=== PATIENT | female | born 1960 | race Caucasian/White ===

== ENCOUNTER 2020-08-05 10:08 | Emergency (ER) | payer OTHER, BC, SELFPAY ==
[2020-08-05 10:24] VITALS: BP 162/71; PULSE 62; RESP 12; TEMP 36.4; O2SAT 99
--- NOTE | 2020-08-05 10:46 | ED.BACK ---
HPI - Back Pain/Injury General Chief Complaint: Back Pain/Injury Stated Complaint: back pain Time Seen by Provider: 08/05/20 10:28 Source: patient and RN notes reviewed Mode of arrival: ambulatory Limitations: no limitations History of Present Illness HPI Narrative: Patient presents today complaining of a 6-day history of low back pain. Reports that it radiates to the bilateral hips and down to the left knee. Denies numbness or tingling in the extremities or genitalia. Denies any loss of bowel or bladder control. 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 States her pain began after she had been rolling multiple very heavy or obese patients last week. She currently rates her pain 5/10 and has been taking naproxen and Skelaxin with mild relief. She has also been using a heating pad. MD elicited complaint: back pain and back injury Related Data Home Medications Medication Instructions Recorded Confirmed Naprosyn 08/05/20 Skelaxin 08/05/20 losartan 08/05/20 thyroid 08/05/20 Allergies Allergy/AdvReac Type Severity Reaction Status Date / Time sumatriptan [From Imitrex] Allergy Unknown Verified 08/05/20 10:30 lisinopril AdvReac Cough Verified 08/05/20 10:30 Review of Systems Review of Systems: Narrative: CONSTITUTIONAL: Denies body aches, fever, chills, or sweats. EYES: Denies visual changes, redness, or discharge. ENT: Denies rhinorrhea, congestion, sore throat, or otalgia. CARDIOVASCULAR: Denies chest pain, palpitations, or edema. RESPIRATORY: Denies cough or dyspnea. GASTROINTESTINAL: Denies abdominal pain, nausea, vomiting, or diarrhea. GENITOURINARY: Denies dysuria or hematuria. SKIN: Denies rash, itching, or wounds. MUSCULOSKELETAL: Denies joint pain, or myalgia. + Low back pain NEUROLOGIC: Denies headache, numbness, tingling, or weakness. PSYCH: Denies depression or anxiety. [facility] Past Medical History Medical History (Updated 08/05/20 @ 11:44 by Claudia Rodriguez, [employer], ) Fibromyalgia Hypertension Hypothyroidism Comments At time of signature, I have reviewed and agree with nursing past medical, surgical, social and family history unless otherwise noted. Please see nursing chart for further information. There is no relevant family history pertinent to the presenting complaint Exam Narrative: Exam Narrative: GENERAL: Well-appearing, well-nourished, and in no acute distress. HEAD: Normocephalic, atraumatic. EYES: EOMI. No redness or drainage. Conjunctivae normal. ENT: Mucous membranes pink and moist. NECK: Normal AROM. CHEST: No respiratory distress. MUSCULOSKELETAL: Midline tenderness of the lower lumbar spine. Bilateral lower lumbar paraspinal muscle tenderness that extends to the bilateral buttocks. Distal sensation intact bilaterally. Saddle sensation intact. Capillary refill normal. Posterior tibial pulses normal. Foot push and pulls equal and strong. Hip flexion equal and strong bilaterally against resistance. Straight leg raises negative bilaterally. EXTREMITIES: Normal range of motion SKIN: Warm, dry, no rash. Capillary refill normal. Normal skin turgor. NEURO: No focal deficits. Alert and oriented x3. Gait steady. PSYCH: Normal affect. No signs of depression or anxiety. Course Vital Signs Vital signs: Vital Signs Temperature 97.6 F 08/05/20 10:24 Pulse Rate 62 08/05/20 10:24 Respiratory Rate 12 08/05/20 10:24 Blood Pressure 162/71 H 08/05/20 10:24 Pulse Oximetry 99 08/05/20 10:24 Temperature 97.6 F 08/05/20 10:24 Pulse Rate 62 08/05/20 10:24 Respiratory Rate 12 08/05/20 10:24 Blood Pressure 162/71 H 08/05/20 10:24 Pulse Oximetry 99 08/05/20 10:24 Reviewed. Pt has been instructed to follow up with her PCP regarding her elevated blood pressure today. MDM - Back Pain/Injury Differential Diagnosis Differential diagnosis: Likely lumbar radiculopathy, sciatica, strain of lumbar region, thoracic back pain and other (Bul
== END 2020-08-05 10:58 | disposition home or self-care (01) ==
PROVIDERS: Emergency Provider Nurse Practitioner
DX: S39.012A Strain of muscle, fascia and tendon of lower back, initial encounter (principal); X50.0XXA Overexertion from strenuous movement or load, initial encounter; Y99.0 Civilian activity done for income or pay; M79.7 Fibromyalgia; I10 Essential (primary) hypertension; E03.9 Hypothyroidism, unspecified
CPT/HCPCS: 99213; G0463

== ENCOUNTER 2020-08-06 14:10 | Outpatient (CLI) | payer OTHER, BC, SELFPAY ==
--- NOTE | ~2020-08-06 | XR_ITS ---
XR lumbar spine 2-3V DATE: 08/06/2020 15:01 INDICATION: Low back pain, worse on the left TECHNIQUE: AP, lateral, coned lateral lumbosacral views COMPARISON: None FINDINGS: Diffuse osteopenia. There are 6 functional lumbar vertebrae. Normal alignment of the lumbar spine. No fracture or bone de struction or spondylolisthesis. The lumbar pedicles are intact. The sacroiliac joints appear normal. IMPRESSION: Osteopenia Reviewed, dictated and finalized at location A. EL RN IMPRESSION: Osteopenia
== END 2020-08-06 14:11 | disposition home or self-care (01) ==
PROVIDERS: PCP Family Medicine
DX: M54.5 Low back pain (principal); M85.88 Other specified disorders of bone density and structure, other site
CPT/HCPCS: 72100

== ENCOUNTER 2020-09-08 15:30 | Outpatient (RCR) | payer OTHER, SELFPAY ==
--- NOTE | 2020-08-26 08:58 | PTOPEVAL ---
PHYSICAL THERAPY EVALUATION AND PLAN OF CARE 08-26-20 Thank you for referring Latha Jordan to [facility] for the diagnosis of low back pain. Ms. Jordan is scheduled to be seen for therapy? 3 x/week for 2 weeks. Please review, sign, date and return this plan of care RAMANA. I agree with and certify that the following plan of care is medically necessary. Referring Physician Date Attending Provider: Dr. Forbes PT Outpatient Evaluation Start: 08/26/20 08:06 Document 08/26/20 08:00 KETTY (Rec: 08/26/20 08:58 KETTY [id number]) Outpatient Past Medical History Past Medical History Source of Past Medical History Recalled from Previous Visit, Confirmed with Patient/Family Neurological History Hx Migraine Yes: about once/month- occular migraines too Cardiovascular History Hx Hypertension Yes: meds Respiratory History Hx Asthma Yes Gastrointestinal History Hx Cholecystectomy Yes Hx Other Gastrointestinal Disorders Yes: small bowel resection Genitourinary History Hx Genitourinary Disorders No Significant History Musculoskeletal History Hx Back Pain Yes: whiplash in past;in 20's- back pain Hx Fibromyalgia Yes Hx Orthopedic Surgery Yes: R and L rot cuff repair; L humeral fx-non surgical Hx Other Musculoskeletal Disorders Yes: fibromyalgia--more pain with fatigue;generalized ache/ pain Hematological History Hx Hematological Disorders No Significant History Endocrine History Hx Hypothyroidism Yes HEENT History Hx HEENT Disorders No Significant History Reproductive History Hx Hysterectomy Yes Hx Post Menopausal Yes Other History Hx Other Medical Conditions Yes: R thumb pop and wearing wrist splint Evaluation Information Problem Diagnosis low back pain Onset Jul 30, 2020 Subjective Information onset with working, turning a Query Text:As Reported By Patient/ large pt in bed, to clean her; Family had twinge in her back; then had 2 another pts- who were attempting to get out of bed, had to resist and help them return to bed; went to Urgent Care Aug 05; saw work comp , had lumbar x rays report stated 6 lumbar vertebra, osteopenia; per pt-- working light duty with 10# lifting restriction-
--- NOTE | 2020-09-03 13:35 | PCPTNOTE ---
pt called and canceled today's appt, rescheduled for later this week.
--- NOTE | 2020-09-08 16:19 | PTOPEVAL ---
PHYSICAL THERAPY DISCHARGE 09-08-20 Refer to the clinical summary below, for her status with this reeval, compared to the initial evaluation. Thank you for referring Latha Jordan to [facility] Please review, sign, date and return this discharge RAMANA. I agree with and certify that the following plan of care is medically necessary. Referring Physician Date Attending Provider: Dr. Forbes Document 09/08/20 15:25 KETTY (Rec: 09/08/20 16:19 KETTY [id number]) Assessment Status Discharge Subjective Information Latha reports: was doing well, Query Text:As Reported By Patient/ did some light gardening, Family putting plants into pots, without doing any lifting, and went to work, was OK, without back pain, then back pain returned the yesterday morning when woke up; had been doing exercises without any problems, before this increase; feels that she just tweeked her back and it will ease up; she agreed to discharge from PT services. Pain Assessment Timing of Pain Assessment Timing of Pain Assessment Assessment Pain Scale Pain Scale Used Numeric (1 - 10) Self Report Pain Assessment Bilateral Back Reported Pain Level 6 Pain Description Burning,Sharp Radicular Pain Location no radicular pain into R or L LE/butt; Pain Frequency Acute Other Pain Description upper lumbar R >L;sharp catch when bench mover over R lower thoracic-upper lumbar Lowest Pain Intensity 1 Greatest Pain Intensity 9 Pain Aggravating Factors Exercise/Activity,Walking, Weight Bearing/Standing Pain Behaviors Grimacing,Guarding Pain Score Pain Score 6: Self Report Additional Pain Score Comments Oswestry self assessment functional score 38% limitation in activity level; reported tolerances with walking about 1 hour, but keep walking after pain gets worse -- walk with holding stomach tight and upright back; with sleeping, pain awakens 2-3 x/ night due to back pain, reposition and use heat, return to sleep
== END 2020-09-09 10:33 | disposition home or self-care (01) ==
LOC: ANHPT 15:30
PROVIDERS: PCP Family Medicine
DX: M54.5 Low back pain (principal)
CPT/HCPCS: 97014; 97110; 97140; 97161; G0283

== ENCOUNTER 2021-12-04 10:27 | Outpatient (CLI) | payer BC, OTHER, SELFPAY ==
[2021-12-04 11:16] LABS: Basophils Absolute Auto 0.1 K/mm3 (0.0-0.1); Eosinophils Absolute Auto 0.1 K/mm3 (0-0.3); Eosinophils Percent Auto 2.1 % (0-4.4); Hematocrit 42.9 % (37.0-47.0); Hemoglobin 13.8 g/dL (12.0-15.0); Immature Granulocyte Absolute 0.01 K/mm3 (0.00-0.031); Immature Granulocyte Percent A 0.2 % (0-0.5); Lymphocytes Absolute Auto 1.78 K/mm3 (0.9-3.2); Mean Corpuscular HGB Conc 32.2 g/dl (32-36); Mean Corpuscular Hemoglobin 28.2 pg (26-34); Mean Corpuscular Volume 87.6 fl (80-100); Mean Platelet Volume 10.6 fl (7.4-10.4); Monocytes Absolute Auto 0.5 K/mm3 (0.1-0.6); Neutrophils Absolute Auto 3.7 K/mm3 (1.3-6.7); Neutrophils Percent Auto 59.7 % (45.5-73.1); Platelet Count Result 226 k/mm3 (150-375); Red Cell Distribution Width 12.3 % (11.5-14.5); White Blood Count 6.1 K/mm3 (4.5-10.0)
[2021-12-04 13:15] LABS: Alanine Aminotransferase 29 U/L (6-35); Albumin Level 4.6 g/dL (3.5-5.1); Alkaline Phosphatase 100 U/L (38-126); Anion Gap 8 mmol/L (8-16); Aspartate Amino Transferase 27 U/L (14-36); Bilirubin,Total 0.7 mg/dL (0.2-1.3); Blood Urea Nitrogen 14 mg/dL (7-17); Carbon Dioxide 27 mmol/L (22-30); Chloride 103 mmol/L (98-107); Cholesterol 247 mg/dL (0-200); Estimated Glomerular Filt Rate > 60; Glucose 92 mg/dL (65-110); HDL Direct 70 mg/dL; Potassium 4.1 mmol/L (3.4-5.0); Sodium 138 mmol/L (137-145); Triglycerides 228 mg/dL (<150); Uric Acid 5.8 mg/dL (2.5-7.5)
[2021-12-04 13:26] LABS: LDL Cholesterol Direct 106 mg/dL
[2021-12-04 13:31] LABS: Free T4 Free Thyroxine 1.21 ng/mL (0.78-2.19)
[2021-12-04 13:37] LABS: Hemoglobin A1C 5.2 % (<5.7)
[2021-12-04 13:46] LABS: Thyroid Stimulating Hormone 0.726 uIU/mL (0.465-4.680); Total Triiodothyronine (T3) 1.35 NG/ML (0.97-1.69)
[2021-12-04 14:22] LABS: Erythrocyte Sedimentation Rate 10 mm/hr (0-20)
== END 2021-12-04 10:28 | disposition home or self-care (01) ==
LOC: ANHLAB 10:28
PROVIDERS: PCP Family Medicine; Visit Provider Family Medicine
DX: Z13.1 Encounter for screening for diabetes mellitus (principal); I10 Essential (primary) hypertension; J45.909 Unspecified asthma, uncomplicated; M19.90 Unspecified osteoarthritis, unspecified site; E78.2 Mixed hyperlipidemia; E03.9 Hypothyroidism, unspecified; E79.0 Hyperuricemia without signs of inflammatory arthritis and tophaceous disease
CPT/HCPCS: 36415; 80053; 80061; 83036; 84439; 84443; 84480; 84550; 85025; 85652

== ENCOUNTER 2021-12-31 16:22 | Outpatient (CLI) | payer BC, OTHER, SELFPAY ==
--- NOTE | ~2021-12-31 | MM_ITS ---
EXAMINATION: MM screening juanis BI w viktor HISTORY: Screening TECHNIQUE: Craniocaudal and mediolateral oblique 3-D tomosynthesis images were obtained and synthetic 2-D images were generated. CAD analysis was submitted and interpreted. COMPARISON: No prior mammogram is available for comparison at this institution. BREAST PARENCHYMAL COMPOSITION: There are scattered areas of fibroglandular density. FINDINGS: There is no evidence of suspicious mass, calcification, or architectural distortion to sugg est malignancy in either breast. There has been no suspicious interval change. IMPRESSION: 1. No mammographic evidence of malignancy. 2. Recommend routine screening mammography in one year. BI-RADS Category 1: Negative Reviewed, dictated and finalized at location A.
== END 2021-12-31 16:23 | disposition home or self-care (01) ==
LOC: ANHIMG 16:26
PROVIDERS: PCP Family Medicine; Visit Provider Family Medicine
DX: Z12.31 Encounter for screening mammogram for malignant neoplasm of breast (principal)
CPT/HCPCS: 77063; 77067

== ENCOUNTER 2022-01-26 17:33 | Outpatient (CLI) | payer BC, OTHER, SELFPAY ==
--- NOTE | ~2022-01-26 | DEXA_ITS ---
Bone Density Report Name: JORDAN CHUN Age: 61 Sex: Female Ethnicity: White Date of : 1960 Indication: postmenopausal; screening for osteoporosis; height loss; asthma or emphysema; hysterectomy; Referring Provider: YAZAN SOUZA Study: Bone densitometry was performed. Exam Date: January 26, 2022 Accession number: [id number] Bone Density: Region BMD T-score Z-score Classification AP Spine(L1-L4) 0.938 -1.0 0.5 Normal Femoral Neck (Left) 0.797 -0.5 0.9 Normal Total Hip (Left) 0.876 -0.5 0.5 Normal Femoral Neck (Right) 0.857 0.1 1.4 Normal Total Hip (Right) 0.885 -0.5 0.6 Normal Total Hip Mean 0.880 -0.5 0.6 Normal World Health Organization criteria for BMD impression classify patients as: Normal (T-score at or above -1.0), Osteopenia (T-score between -1.0 and -2.5), or Osteoporosis (T-score at or below -2.5). 10-year Fracture Risk: FRAX not reported because: All T-scores for Spine Total, Hip Total, Femoral Neck at or above -1.0 Treated for osteoporosis Clinical Information Provided by Patient: Is being treated for osteoporosis Has used the following medications: Boniva (i.e. ibandronate), Vitamin D, Calcium Has the following medical conditions: Asthma or Emphysema, Hysterectomy, hypothyroidism Patient maximum height was 67.5 Menopause Age: 46 Drinks caffeinated beverages Onset of menses at age 15 Number of children 3 Impression: The patient has normal bone mass. Discussion: It is important to ask patients whether they are taking their medications and to encourage continued and appropriate compliance with their osteoporosis therapies to reduce fracture risk. It is also important to review their risk factors and encourage appropriate calcium and vitamin D intakes, exercise, fall prevention and other lifestyle measures. Follow-Up: Consider a repeat BMD and Vertebral Fracture Assessment (VFA) exam in 2 years or sooner if medically necessary, to reassess this patient's status. Reported by: YONIS on 01/26/2022 6:08:00 PM. Reviewed, dictated and finalized at location [facility]
== END 2022-01-26 17:34 | disposition home or self-care (01) ==
PROVIDERS: PCP Family Medicine; Visit Provider Family Medicine
DX: Z78.0 Asymptomatic menopausal state (principal)
CPT/HCPCS: 77080

== ENCOUNTER 2022-12-03 01:23 | Day surgery (SDC) | payer OTHER, SELFPAY ==
[2022-11-26 11:27] VITALS: BMI 36.2
--- NOTE | 2022-12-02 13:04 | WPDANESEPPF ---
Anes - Initial Pre Proc Eval Procedure: Operation Date: 12/03/22 08:30 Proposed Procedures p Colonoscopy - Juan Garcia MD Date/Time: 12/02/22 13:04 Surgeon: Juan Garcia MD Pre Op Diagnosis: hx colon polyps, family hx colon ca Patient Data Age: 62 Gender: F Height: 1.7 m Weight: 105 kg Allergies Allergy/AdvReac Type Severity Reaction Status Date / Time sumatriptan [From Imitrex] Allergy Intermediate Palpitations Verified 12/03/22 06:59 and dizziness lisinopril Allergy Mild Cough Verified 12/03/22 06:59 alcohol AdvReac Mild Other Verified 12/03/22 06:59 erythromycin base AdvReac Muscle Pain Verified 12/03/22 06:59 [From Staticin] ethyl alcohol [From Staticin] AdvReac Muscle Pain Verified 12/03/22 06:59 Home Medications Medication Instructions Recorded Confirmed Type multivitamin 1 tablet PO DAILY 09/29/21 11/26/22 History irbesartan 300 mg tablet 300 mg PO DAILY #90 tabs 07/26/22 11/26/22 Rx levothyroxine 88 mcg capsule 88 mcg PO DAILY #90 caps 07/26/22 12/03/22 Rx dicyclomine 10 mg capsule 10 mg PO BID PRN diarrhea #60 caps 07/27/22 11/26/22 Rx furosemide 20 mg tablet See Rx Instructions .Route 08/04/22 11/26/22 Rx .COMPLEX #90 tabs albuterol 90 mcg/actuation aerosol 90 mcg inhalation DAILY PRN 11/26/22 11/26/22 History inhaler Wheezing buspirone 5 mg tablet See Rx Instructions .Route 11/26/22 11/26/22 History .COMPLEX PRN Anxiety fexofenadine 30 mg tablet 180 mg PO DAILY 11/26/22 11/26/22 History naproxen 250 mg tablet 250 mg PO BID 11/26/22 11/26/22 History Patient hx anesthesia problems: none Family hx anesthesia problems: none Results Review: All pre-operative results and documents have been reviewed as part of the pre-operative evaluation. [facility] Past Medical History Medical History Allergic asthma Arthritis Benign essential HTN Fibromyalgia Fibromyalgia HENRY (generalized anxiety disorder) Hypertension Hypothyroidism Hypothyroidism (acquired) Morbid obesity JULES (obstructive sleep apnea) Stromal tumor of digestive system Surgical History Surgical History H/O gastric sleeve H/O resection of small bowel H/O rotator cuff surgery Left 1996, Right-2004 Hx of cholecystectomy S/P DAYSI (total abdominal hysterectomy) Family History Family History Mother Alcohol abuse Hypertension Asthma Depression Father Hypertension Heart disease Other Thyroid disease Social History Social History Social History: Smoking status: Never smoker Second hand tobacco smoke exposure: No Alcohol intake: current Alcohol use details: Occasionally Substance use: never Substance use type: does not use Living arrangements: with family Occupation/Education: occupation Additional occupation/education comments: Pt works for [employer] Gender identity (if verbalized by the patient): Female Sexual Orientation (if Verbalized by the Patient): Straight or Heterosexual Spiritual care concerns: No Anes - Eval Final PreProcedure Day of Procedure 12/02/22 13:04 Patient weight: obese Heart: regular rate and rhythm Lungs: clear to auscultation Airway: Mallampati scale class II Neurological: alert and oriented Last oral intake: >/= 8 hours ASA classification: III Emergent: no Anesthetic plan: proceed Anesthesia type and monitoring: general GIVS and standard monitoring Results Review: All pre-operative results and documents have been reviewed as part of the pre-operative evaluation. Informed Consent: The patient's anesthetic plan and its attendant risks and benefits were discussed with the patient/family/POA. Questions were solicited and answers provided to the satisfaction of the patient/famil
[2022-12-03 07:00] VITALS: BP 150/70; PULSE 68; RESP 19; TEMP 36.3; O2SAT 100
[2022-12-03] MEDS: LACTATED RINGERS 1,000 ML 150 ML IV CONT (07:14)
--- NOTE | 2022-12-03 08:00 | PM.HPGS ---
History of Present Illness History of Present Illness Consent: Risks, benefits, and alternatives have been discussed and questions answered. Patient agrees to proceed with procedure. Chief complaint: hx colon polyps, family hx colon ca Narrative: Latha Jordan is a 62 year old female with history of polyps, last colonoscopy about 6 years ago, father had colon cancer Review of Systems Constitutional: Constitutional: Denies headache(s) and Denies weakness Eyes: Eyes: Denies blurry vision ENT: Reports Normal hearing present, Denies headache(s) and Denies neck pain Cardiovascular: Cardiovascular: Denies chest pain and Denies dyspnea Respiratory: Respiratory: Denies dyspnea Gastrointestinal: Gastrointestinal: Reports no additional gastrointestinal complaints Genitourinary: Genitourinary: Denies dysuria Musculoskeletal: Musculoskeletal: Denies neck pain Integumentary/Breasts: Skin/Breast: Denies dry skin Neurologic: Reports Normal hearing present, Denies headache(s) and Denies weakness Psychiatric: Psychiatric: Denies anxiety Endocrine: Endocrine: Denies change in body appearance Hematologic/Lymphatic: Hematologic/Lymphatic: Denies easy bleeding Allergic/Immunologic: Allergic/Immunologic: Denies urticaria PMFSH Past Medical History Medical History Allergic asthma Arthritis Benign essential HTN Fibromyalgia Fibromyalgia HENRY (generalized anxiety disorder) Hypertension Hypothyroidism Hypothyroidism (acquired) Morbid obesity JULES (obstructive sleep apnea) Stromal tumor of digestive system Surgical History Surgical History H/O gastric sleeve H/O resection of small bowel H/O rotator cuff surgery Left 1996, Right-2004 Hx of cholecystectomy S/P DAYSI (total abdominal hysterectomy) Family History Family History Mother Alcohol abuse Hypertension Asthma Depression Father Hypertension Heart disease Other Thyroid disease Social History Social History Social History: Smoking status: Never smoker Second hand tobacco smoke exposure: No Alcohol intake: current Alcohol use details: Occasionally Substance use: never Substance use type: does not use Living arrangements: with family Occupation/Education: occupation Additional occupation/education comments: Pt works for [employer] Gender identity (if verbalized by the patient): Female Sexual Orientation (if Verbalized by the Patient): Straight or Heterosexual Spiritual care concerns: No Meds Home Medications and Allergies Home Medications Medication Instructions Recorded Confirmed Type multivitamin 1 tablet PO DAILY 09/29/21 11/26/22 History irbesartan 300 mg tablet 300 mg PO DAILY #90 tabs 07/26/22 11/26/22 Rx levothyroxine 88 mcg capsule 88 mcg PO DAILY #90 caps 07/26/22 12/03/22 Rx dicyclomine 10 mg capsule 10 mg PO BID PRN diarrhea #60 caps 07/27/22 11/26/22 Rx furosemide 20 mg tablet See Rx Instructions .Route 08/04/22 11/26/22 Rx .COMPLEX #90 tabs albuterol 90 mcg/actuation aerosol 90 mcg inhalation DAILY PRN 11/26/22 11/26/22 History inhaler Wheezing buspirone 5 mg tablet See Rx Instructions .Route 11/26/22 11/26/22 History .COMPLEX PRN Anxiety fexofenadine 30 mg tablet 180 mg PO DAILY 11/26/22 11/26/22 History naproxen 250 mg tablet 250 mg PO BID 11/26/22 11/26/22 History Allergies Allergy/AdvReac Type Severity Reaction Status Date / Time sumatriptan [From Imitrex] Allergy Intermediate Palpitations Verified 12/03/22 06:59 and dizziness lisinopril Allergy Mild Cough Verified 12/03/22 06:59 alcohol AdvReac Mild Other Verified 12/03/22 06:59 erythromycin base AdvReac Muscle Pain Verified 12/03/22 06:59 [From Staticin] ethyl alcohol [From Staticin] AdvRea
[2022-12-03 08:22] VITALS: BP 114/47; PULSE 80; RESP 14; O2SAT 98
[2022-12-03 08:32] VITALS: BP 120/58; PULSE 70; RESP 16; O2SAT 100
[2022-12-03 08:42] VITALS: BP 138/74; PULSE 63; RESP 17; O2SAT 100
== END 2022-12-03 08:46 | disposition home or self-care (01) ==
PROVIDERS: PCP Family Medicine; Visit Provider Internal Medicine Gastroenterology
PROC: 0DJD8ZZ Inspection of Lower Intestinal Tract, Via Natural or Artificial Opening Endoscopic (ICD-10-PCS; CPT 45378; principal; 2022-12-03 08:00)
DX: Z12.11 Encounter for screening for malignant neoplasm of colon (principal); K57.30 Diverticulosis of large intestine without perforation or abscess without bleeding; K64.8 Other hemorrhoids; Z86.010 Personal history of colon polyps; Z80.0 Family history of malignant neoplasm of digestive organs; I10 Essential (primary) hypertension; E03.9 Hypothyroidism, unspecified; G47.33 Obstructive sleep apnea (adult) (pediatric); F41.1 Generalized anxiety disorder; Z98.84 Bariatric surgery status; M79.7 Fibromyalgia; Z85.00 Personal history of malignant neoplasm of unspecified digestive organ; Z79.51 Long term (current) use of inhaled steroids; E66.9 Obesity, unspecified; Z68.38 Body mass index [BMI] 38.0-38.9, adult
CPT/HCPCS: 45378; J2704; J7120